=== PATIENT | male | born 2000 | race Two or more races ===

== ENCOUNTER 2021-06-14 14:36 | Emergency (ER) | payer OTHER ==
[~2021-06-14] VITALS: Ht 172.7 cm; Wt 81.6 kg
[2021-06-14 16:43] VITALS: BP 110/83
[2021-06-14] MEDS ORDERED: KETOROLAC TROMETH 60MG/2ML VIAL IM ONE (16:45)
== END 2021-06-14 17:03 | disposition home or self-care (01) ==
LOC: EDUNIT# 14:36 → EDBD 14:36 → ER 14:36
DX: S40.012A Contusion of left shoulder, initial encounter (principal); S20.211A Contusion of right front wall of thorax, initial encounter; V43.52XA Car driver injured in collision with other type car in traffic accident, initial encounter; Y93.89 Activity, other specified; Y92.410 Unspecified street and highway as the place of occurrence of the external cause; Y99.8 Other external cause status
CPT/HCPCS: 71101; 73030; 96372; 99284; J1885